=== PATIENT | female | born 1985 | race Caucasian/White ===

== ENCOUNTER 2017-06-03 18:20 | Inpatient (IN) | payer MEDICAID ==
[2017-06-03] MEDS ORDERED: Methylergonovine 0.2 MG/1 ML Amp IM PRN (20:18)
[2017-06-03] MEDS ORDERED: Misoprostol 200 MCG Tab PO PRN (20:18)
[2017-06-03] MEDS ORDERED: Sodium Chloride 0.9% 2.5 ML Syringe FLUSH PRN (20:18)
[2017-06-03] MEDS ORDERED: Water For Irrigation,Sterile 1,000 ML Container IRR PRN (20:18)
[2017-06-03] MEDS ORDERED: Carboprost Tromethamine 250 MCG/1 ML Amp IM PRN (20:18)
[2017-06-03] MEDS ORDERED: Lidocaine 1% 50 ML MDV INJECT PRN (20:18)
[2017-06-03] MEDS ORDERED: Nalbuphine 10 MG/1 ML Vial IVPUSH PRN (20:18)
[2017-06-03] MEDS ORDERED: Sodium Chloride 0.9% 10 ML Syringe FLUSH PRN (20:18)
[2017-06-03] MEDS ORDERED: Butorphanol 1 MG/ML SDV IVPUSH PRN (20:18)
[2017-06-03] MEDS ORDERED: Lactated Ringers 1,000 ML IV SCH (20:30)
[2017-06-03] MEDS ORDERED: Oxytocin/Lactated Ringers 30 UNIT/500 ML BAG IV SCH ×2 (20:30→23:30)
[2017-06-03 21:04] LABS: CHLORIDE,CL 107 mmol/L (98-110); SODIUM,NA 136 mmol/L (136-146)
[2017-06-03] MEDS ORDERED: Terbutaline 1 MG/ML SDV SUBCUT PRN (23:21)
--- NOTE | 2017-06-04 04:15 | PCM.PREANE ---
Preanesthetic Assessment - Anesthesia/Transfusion/Family Hx Anesthesia History: Prior Anesthesia Without Reaction Transfusion History: No Prior Transfusion(s) - Review of Systems General: No Symptoms Pulmonary: No Symptoms Cardiovascular: No Symptoms Gastrointestinal: No Symptoms Neurological: No Symptoms Other: Reports: None - Physical Assessment Height: 5 ft 4 in Weight: 87.997 kg ASA Class: 2 Mental Status: Alert & Oriented x3 Airway Class: Mallampati = 2 Dentition: Reports: Normal Dentition Thyro-Mental Finger Breadths: 3 Mouth Opening Finger Breadths: 3 ROM/Head Extension: Full Lungs: Clear to Auscultation, Normal Respiratory Effort Cardiovascular: Regular Rate, Regular Rhythm - Lab Values: Laboratory Last Values WBC 14.55 K/uL (4.0-11.0) H 06/03/17 20:33 RBC 4.64 M/uL (4.30-5.90) 06/03/17 20:33 Hgb 14.2 g/dL (12.0-16.0) 06/03/17 20:33 Hct 41.3 % (36.0-46.0) 06/03/17 20:33 MCV 89.0 fL (80.0-98.0) 06/03/17 20:33 MCH 30.6 pg (27.0-32.0) 06/03/17 20:33 MCHC 34.4 g/dL (31.0-37.0) 06/03/17 20:33 RDW Std Deviation 45.8 fl (28.0-62.0) 06/03/17 20:33 RDW Coeff of Barb 14 % (11.0-15.0) 06/03/17 20:33 Plt Count 237 K/uL (150-400) 06/03/17 20:33 MPV 11.00 fL (7.40-12.00) 06/03/17 20:33 Nucleated RBC % 0.0 /100WBC 06/03/17 20:33 Nucleated RBCs # 0 K/uL 06/03/17 20:33 Sodium 136 mmol/L (136-146) 06/03/17 20:33 Potassium 4.4 mmol/L (3.5-5.1) 06/03/17 20:33 Chloride 107 mmol/L (98-110) 06/03/17 20:33 Carbon Dioxide 18 mmol/L (21-31) L 06/03/17 20:33 BUN 11 mg/dL (6.0-23.0) 06/03/17 20:33 Creatinine 0.7 mg/dL (0.6-1.5) 06/03/17 20:33 Est Cr Clr Drug Dosing 102.40 mL/min 06/03/17 20:33 Estimated GFR (MDRD) > 60.0 ml/min 06/03/17 20:33 Glucose 72 mg/dL (60-110) 06/03/17 20:33 Calcium 9.2 mg/dL (8.8-10.8) 06/03/17 20:33 Total Bilirubin 0.3 mg/dL (0.1-1.5) 06/03/17 20:33 AST 19 IU/L (5-40) 06/03/17 20:33 ALT 21 IU/L (8-54) 06/03/17 20:33 Alkaline Phosphatase 202 (40-150) H 06/03/17 20:33 Total Protein 6.2 g/dL (6.0-8.0) 06/03/17 20:33 Albumin 3.4 g/dL (3.5-5.0) L 06/03/17 20:33 Globulin 2.8 g/dL (2.0-3.5) 06/03/17 20:33 Albumin/Globulin Ratio 1.2 (1.3-2.8) L 06/03/17 20:33 Urine Color YELLOW 06/03/17 19:45 Urine Appearance CLOUDY 06/03/17 19:45 Urine pH 7.0 (5.0-8.0) 06/03/17 19:45 Ur Specific [place] 1.020 (1.001-1.035) 06/03/17 19:45 Urine Protein NEGATIVE mg/dL (NEGATIVE) 06/03/17 19:45 Urine Glucose (UA) NEGATIVE mg/dL (NEGATIVE) 06/03/17 19:45 Urine Ketones 15 mg/dL (NEGATIVE) H 06/03/17 19:45 Urine Occult Blood MODERATE (NEGATIVE) 06/03/17 19:45 Urine Nitrite NEGATIVE (NEGATIVE) 06/03/17 19:45 Urine Bilirubin NEGATIVE (NEGATIVE) 06/03/17 19:45 Urine Urobilinogen 0.2 EU/dL (<2.0) 06/03/17 19:45 Ur Leukocyte Esterase TRACE (NEGATIVE) 06/03/17 19:45 Urine RBC 10-12 (0-2/HPF) 06/03/17 19:45 Urine WBC 3-5 (0-5/HPF) 06/03/17 19:45 Ur Epithelial Cells MANY (NONE-FEW) 06/03/17 19:45 Urine Bacteria 1+ (NEGATIVE) H 06/03/17 19:45 Membrane Rupture POSITIVE 06/03/17 18:35 Blood Type A POSITIVE 06/03/17 20:33 Antibody Screen NEGATIVE 06/03/17 20:33 - Allergies Allergies/Adverse Reactions: Allergies Allergy/AdvReac Type Severity Reaction Status Date / Time sulfamethoxazole Allergy Dizziness Verified 04/26/17 09:40 [From Bactrim] trimethoprim [From Bactrim] Allergy Dizziness Verified 04/26/17 09:40 - Acknowledgements Anesthesia Type Planned: Epidural Pt an Appropriate Candidate for the Planned Anesthesia: Yes Alternatives and Risks of Anesthesia Discussed w Pt/Guardian: Yes Pt/Guardian Understands and Agrees with Anesthesia Plan: Yes PreAnesthesia Questionnaire HEENT History: Reports: None Cardiovascular History: Reports: Hypertension (Gestational) Respiratory History: Reports: None Gastrointestinal History: Reports: GERD Genitourinary History: Reports: None CUFF SETTER History: Reports: : 3 Para: 0 LMP (Approximate): Other OB/BYN History: Preclampsia Musculoskeletal History: Reports: None Neurological History: Reports: None Psychiatric History: Reports: None Endocrine/Metabolic History: Reports: Obesity/BMI 30+ Hematologic History: Reports: None Immunologic History: Reports: None Oncologic (Cancer) History: Reports: None Dermatologic History: Reports: None - Past Surgical History HEENT Surgical History: Reports: Tonsillectomy Dermatological Surgical History: Reports: Other (See Below) (Breast augmentation ) - CURRENT (IN HOUSE) MEDS Current Meds: Current Medications Butorphanol Tartrate (Stadol) 1 mg IVPUSH Q1H PRN PRN Reason: Pain Carboprost Tromethamine (Hemabate Ds) 250 mcg IM ASDIRECTED PRN PRN Reason: Post Hemorrhage Lactated Ringer's (Ringers, Lactated) 1,000 mls @ 150 mls/hr IV ASDIRECTED NADINE Last Admin: 06/03/17 20:32 Dose: 150 mls/hr Oxytocin/Lactated Ringer's (Pitocin In Lr 30 Units/500 Ml) 30 unit in 500 mls @ 2 mls/hr IV TITRATE NADINE; 2 MUNITS/MIN PRN Reason: Protocol Last Titration: 06/04/17 03:21 Dose: 10 munits/min, 10 mls/hr Lidocaine HCl (Xylocaine 1%) 50 ml INJECT .ONCE PRN PRN Reason: Laceration repair Methylergonovine Maleate (Methergine) 0.2 mg IM ASDIRECTED PRN PRN Reason: Post Hemorrhage Misoprostol (Cytotec) 200 mcg PO .ONCE PRN PRN Reason: Post Hemorrhage Sodium Chloride (Saline Flush) 10 ml FLUSH ASDIRECTED PRN PRN Reason: Keep Vein Open Sodium Chloride (Saline Flush) 2.5 ml FLUSH ASDIRECTED PRN PRN Reason: Keep Vein Open Sterile Water (Sterile Water For Irrigation) 1,000 ml IRR ASDIRECTED PRN PRN Reason: delivery Terbutaline Sulfate (Brethine) 0.25 mg SUBCUT ASDIRECTED PRN PRN Reason: Tacysystole Discontinued Medications Oxytocin/Lactated Ringer's (Pitocin In Lr 30 Units/500 Ml) 30 unit in 500 mls @ 250 mls/hr IV TITRATE NADINE PRN Reason: 250 MUNITS/MIN Stop: 06/03/17 22:29 Nalbuphine HCl (Nubain) 10 mg IVPUSH Q1H PRN PRN Reason: Pain (severe 7-10) Stop: 06/03/17 22:19
[2017-06-04] MEDS ORDERED: fentaNYL 100 MCG/2 ML SDV ONE (04:17)
[2017-06-04] MEDS ORDERED: Ropivacaine HCl/PF 100 ML ONE (04:17)
[2017-06-04] MEDS ORDERED: ePHEDrine 50 MG/ML SDV ONE (06:01)
--- NOTE | 2017-06-04 06:38 | PCM.SN ---
- Free Text/Narrative Note: Called by nursing for PIV access. Pt currently has a 20g PIV that is not working. 20g PIV started to Lt hand, draws and flushes with ease. Secured with tape and tegaderm.
[2017-06-04] MEDS ORDERED: Witch Hazel Medicated Pads 40/Jar TOP PRN (10:16)
[2017-06-04] MEDS ORDERED: Benzocaine/Menthol 20%-0.5% Spray 78 GM Cannister TOP PRN (10:16)
[2017-06-04] MEDS ORDERED: Docusate Sodium 100 MG Cap PO PRN (10:16)
[2017-06-04] MEDS ORDERED: Bisacodyl 10 MG Supp RECTAL PRN (10:16)
[2017-06-04] MEDS ORDERED: Acetaminophen 500 MG Tab PO PRN (10:16)
[2017-06-04] MEDS ORDERED: Ibuprofen 400 MG Tab PO PRN (10:16)
[2017-06-04] MEDS ORDERED: oxyCODONE 5 MG Tab PO PRN (10:16)
[2017-06-04] MEDS ORDERED: Lanolin 100% Cream 7 GM Tube TOP PRN (10:16)
[2017-06-04] MEDS ORDERED: Ibuprofen 800 MG Tab PO PRN (10:16)
--- NOTE | 2017-06-04 11:15 | OR ---
SURGEON: Jessica Douglas M.D. DATE OF PROCEDURE: 06/04/2017 PREOPERATIVE DIAGNOSES: 1. Thirty-nine week intrauterine . 2. Spontaneous rupture of membranes. POSTOPERATIVE DIAGNOSES: 1. Thirty nine-week intrauterine . 2. Spontaneous rupture of membranes. PROCEDURE: Spontaneous vaginal delivery, first-degree perineal laceration repaired. ESTIMATED BLOOD LOSS: 300 mL. ANESTHESIA: Epidural. COMPLICATIONS: None. FINDINGS: Term male, score 9 at 1 minute, 9 at 5 minutes. Weight of a 3480 g. Spontaneous delivery, intact placenta, three-vessel cord, true knot in the cord. It was noted nuchal cord x1 was reduced manually. DISPOSITION: Mom in LDRP, infant nursery. PROCEDURE DETAIL: Larry is a 31-year-old, G3, P0-0-2-0, at 38 and 6 weeks' gestational age when she presented on the evening of 06/03/2017 with leakage of fluid since approximately 3:00 p.m. AmniSure was positive. Fluid was clear. She was found to be 2 cm, 70% effaced, -3 station. Therefore, she was admitted, routine labs were drawn, and IV hydration was initiated. She was monitored for the next 2 hours without any interval change in the cervix and no regular contractions formulating. Therefore, was initiated on Pitocin augmentation. She responded very nicely to this and progressed fairly quickly through the respiratory care assistant hours, and shortly before 5:00 a.m., she was found to be 7 cm. She was having difficulty with pain; therefore, underwent regional anesthesia in the form of epidural. heart tones have been in the 140s. She underwent epidural satisfactorily, became more comfortable, however, directly thereafter began having recurrent deceleration. Therefore, IV hydration was initiated. The patient was repositioned, oxygen was placed, and Pitocin was discontinued. With these efforts, the heart tones stabilized again to the 140s with variability, category 1. Shortly after 6:00 a.m., the patient was found to be complete, 100% effaced, +1 station. The patient was comfortable and able to rest. Therefore, we allowed her to continue to labor. She was still having contractions every 3 to 4 minutes. At approximately 9:00 a.m., she was found to be +2 station and started pushing efforts. heart tones were in the 140s. Contractions were moderate to palpation. Therefore, Pitocin was resumed two sohail units which helped intensified in patient with pushing efforts, was easily able to deliver +4 station, and I was called for delivery. The patient was placed in modified dorsal lithotomy position. She was prepped and draped in the usual aseptic manner. With pushing efforts, was able to deliver the 's head atraumatically, spontaneously, followed by anterior shoulder, posterior shoulder, main body, delivered nuchal cord. There was a nuchal cord x1 which was reduced manually. The infant's oropharynx and nares were bulb suctioned. Cord clamped x2 and cut. Infant was handed off to his mother with attending nursing staff at her side. Cord arterial, cord venous, cord blood samples obtained. Light pressure was applied while the placenta was delivered spontaneously intact. Vigorous fundal uterine massage was then applied with 30 units of Pitocin was delivered in 500 mL of IV fluid. There was noted to be a true knot in the in the umbilical cord. The uterus remained firm. Upon inspection of cervix, vaginal sidewalls, and perineum, there was a small first-degree left hymenal laceration noted, this repaired with a single figure- of-eight suture using 3-0 Vicryl. Hemostasis thereafter evident. Uterus remained firm. Sponge counts correct. Hemostasis evident. Needle count was correct. The patient will remain in LDRP and the infant in nursery. ROHAN PATEL /[id number] BENJAMIN
[2017-06-04] MEDS: Acetaminophen 500 MG Tab PO PRN ×2 (17:11→23:36)
--- NOTE | 2017-06-05 07:39 | PCM.PNPP ---
- General Info Date of Service: 06/05/17 Functional Status: Reports: Pain Controlled, Tolerating Diet, Ambulating, Urinating - Review of Systems General: Denies: Fever, Weakness Pulmonary: Denies: Shortness of Breath Cardiovascular: Denies: Chest Pain, Palpitations, Lightheadedness Gastrointestinal: Denies: Abdominal Pain, Nausea, Vomiting Genitourinary: Denies: Flank Pain Neurological: Reports: No Symptoms Psychiatric: Reports: No Symptoms - General Info Date of Service: 06/05/17 - Patient Data Vital Signs - Most Recent: Last Vital Signs Temp 36.2 C 06/05/17 04:00 Pulse 70 06/05/17 04:00 Resp 17 06/05/17 04:00 BP 134/67 06/05/17 04:00 Pulse Ox 98 06/05/17 04:00 Weight - Most Recent: 87.997 kg Lab Results - Last 24 Hours: Laboratory Results - last 24 hr 06/05/17 Range/Units 06:29 Hgb 12.3 (12.0-16.0) g/dL Hct 36.5 (36.0-46.0) % Med Orders - Current: Current Medications Acetaminophen (Tylenol Extra Strength) 500 mg PO Q4H PRN PRN Reason: Pain Acetaminophen (Tylenol Extra Strength) 1,000 mg PO Q4H PRN PRN Reason: Pain Last Admin: 06/04/17 23:36 Dose: 1,000 mg Benzocaine/Menthol (Dermoplast Pain Relief 20%-0.5% [place]) 78 gm TOP ASDIRECTED PRN PRN Reason: Perineal Comfort Measure Bisacodyl (Dulcolax) 10 mg RECTAL .ONCE PRN PRN Reason: Constipation Carboprost Tromethamine (Hemabate Ds) 250 mcg IM ASDIRECTED PRN PRN Reason: Post Hemorrhage Docusate Sodium (Colace) 100 mg PO BID PRN PRN Reason: Constipation Emollient Ointment (Lansinoh Hpa) 0 gm TOP ASDIRECTED PRN PRN Reason: Sore Nipples Lactated Ringer's (Ringers, Lactated) 1,000 mls @ 150 mls/hr IV ASDIRECTED NADINE Last Admin: 06/03/17 20:32 Dose: 150 mls/hr Oxytocin/Lactated Ringer's (Pitocin In Lr 30 Units/500 Ml) 30 unit in 500 mls @ 2 mls/hr IV TITRATE NADINE; 2 MUNITS/MIN PRN Reason: Protocol Last Titration: 06/04/17 10:05 Dose: 500 munits/min, 500 mls/hr Ibuprofen (Motrin) 400 mg PO Q4H PRN PRN Reason: Pain Ibuprofen (Motrin) 800 mg PO Q6H PRN PRN Reason: Pain Last Admin: 06/04/17 13:12 Dose: 800 mg Lidocaine HCl (Xylocaine 1%) 50 ml INJECT .ONCE PRN PRN Reason: Laceration repair Methylergonovine Maleate (Methergine) 0.2 mg IM ASDIRECTED PRN PRN Reason: Post Hemorrhage Oxycodone HCl (Oxycodone) 5 mg PO Q2H PRN PRN Reason: Pain Sodium Chloride (Saline Flush) 10 ml FLUSH ASDIRECTED PRN PRN Reason: Keep Vein Open Witch Vandana (Tucks) 1 pad TOP ASDIRECTED PRN PRN Reason: comfort care Discontinued Medications Butorphanol Tartrate (Stadol) 1 mg IVPUSH Q1H PRN PRN Reason: Pain Ephedrine Sulfate (Ephedrine Sulfate) Confirm Administered Dose 50 mg .ROUTE .STK-MED ONE Stop: 06/04/17 06:02 Last Admin: 06/04/17 15:39 Dose: Not Given Fentanyl (Sublimaze) Confirm Administered Dose 100 mcg .ROUTE .STK-MED ONE Stop: 06/04/17 04:18 Last Admin: 06/04/17 15:37 Dose: Not Given Oxytocin/Lactated Ringer's (Pitocin In Lr 30 Units/500 Ml) 30 unit in 500 mls @ 250 mls/hr IV TITRATE NADINE PRN Reason: 250 MUNITS/MIN Stop: 06/03/17 22:29 Last Admin: 06/04/17 15:39 Dose: Not Given Ropivacaine (Naropin 0.2%) Confirm Administered Dose 100 mls @ as directed .ROUTE .STK-MED ONE Stop: 06/04/17 04:18 Last Admin: 06/04/17 15:37 Dose: Not Given Misoprostol (Cytotec) 200 mcg PO .ONCE PRN PRN Reason: Post Hemorrhage Nalbuphine HCl (Nubain) 10 mg IVPUSH Q1H PRN PRN Reason: Pain (severe 7-10) Stop: 06/03/17 22:19 Sodium Chloride (Saline Flush) 2.5 ml FLUSH ASDIRECTED PRN PRN Reason: Keep Vein Open Sterile Water (Sterile Water For Irrigation) 1,000 ml IRR ASDIRECTED PRN PRN Reason: delivery Terbutaline Sulfate (Brethine) 0.25 mg SUBCUT ASDIRECTED PRN PRN Reason: Tacysystole - Infant Interaction Infant Disposition, : in Room with Family Interaction: Holding Infant Feeding: Continues to Breastfeed, Encouraged to Breastfeed Support Person: Significant Other - Recovery Exam Fundal Tone: Firm Fundal Level: 1 Fingerbreadths Below Umbilicus Fundal Placement: Midline Lochia Amount: Scant Lochia Color: Rubra/Red Perineum Description: Intact, Minimal Bruising/Swelling Episiotomy/Laceration: Approximated Bladder Status: Voiding Urinary Elimination: Voided - Exam General: Alert, Oriented Lungs: Normal Respiratory Effort Cardiovascular: Regular Rate, Regular Rhythm GI/Abdominal Exam: Soft, Non-Tender Extremities: Non-Tender (1+), Pedal Edema Skin: Warm, Dry, Intact Psy/Mental Status: Alert - Problem List & Annotations (1) Vaginal delivery SNOMED Code(s): 588917046 Code(s): O80 - ENCOUNTER FOR FULL-TERM UNCOMPLICATED DELIVERY Status: Acute Current Visit: Yes - Problem List Review Problem List Initiated/Reviewed/Updated: Yes - My Orders Last 24 Hours: My Active Orders 06/04/17 10:16 May Shower [RC] ASDIRECTED Up ad Ora [RC] ASDIRECTED Vital Signs [RC] PER UNIT ROUTINE Acetaminophen [Tylenol Extra Strength] 1,000 mg PO Q4H PRN Acetaminophen [Tylenol Extra Strength] 500 mg PO Q4H PRN Benzocaine/Menthol [Dermoplast Pain Relief 20%-0.5% [place]] 78 gm TOP ASDIRECTED PRN Bisacodyl [Dulcolax] 10 mg RECTAL .ONCE PRN Docusate Sodium [Colace] 100 mg PO BID PRN Ibuprofen [Motrin] 400 mg PO Q4H PRN Ibuprofen [Motrin] 800 mg PO Q6H PRN Lanolin [Lansinoh HPA] See Dose Instructions TOP ASDIRECTED PRN Witch Vandana [Tucks] 1 pad TOP ASDIRECTED PRN oxyCODONE 5 mg PO Q2H PRN Assess Lochia [WOMSER] Per Unit Routine Assess Uterine Involution [WOMSER] Per Unit Routine Ice Therapy [OM.PC] Per Unit Routine Perineal Care [OM.PC] Per Unit Routine Peripheral IV Discontinue [OM.PC] Routine Sitz Bath [OM.PC] Per Unit Routine 06/04/17 Lunch Regular Diet [DIET] - Assessment Assessment:: PPD 1 status post - Plan Plan:: Patient would like to go home later today. Discharge instructions reviewed. infection and bleeding warnings reviewed. Follow up at [facility] 6 weeks
[2017-06-05 08:18] VITALS: BP 131/72
--- NOTE | 2017-06-05 10:35 | PCM48HPAN ---
Post Anesthesia Note - EVALUATION WITHIN 48HRS OF ANESTHETIC Vital Signs in Normal Range: Yes Patient Participated in Evaluation: Yes Respiratory Function Stable: Yes Airway Patent: Yes Cardiovascular Function Stable: Yes Hydration Status Stable: Yes Pain Control Satisfactory: Yes Nausea and Vomiting Control Satisfactory: Yes Mental Status Recovered: Yes
[2017-06-05] MEDS: Acetaminophen 500 MG Tab PO PRN (12:59)
== END 2017-06-05 13:55 | disposition home or self-care (01) | DRG 775 ==
LOC: MW.OBCHECK 18:20 → MW.OB 18:28 → MW.OBCHECK 20:17 → MW.OB 20:18 → OBSVTOIN 06-04 10:02 → MW.OB 06-04 13:31
PROVIDERS: ADMIT Obstetrics & Gynecology; ATTEND Obstetrics & Gynecology
PROC: 10E0XZZ Delivery of Products of Conception, External Approach (ICD-10-PCS; principal; 2017-06-04)
PROC: 0HQ9XZZ Repair Perineum Skin, External Approach (ICD-10-PCS; 2017-06-04)
DX: O42.02 Full-term premature rupture of membranes, onset of labor within 24 hours of rupture (principal); O70.0 First degree perineal laceration during delivery; O69.1XX0 Labor and delivery complicated by cord around neck, with compression, not applicable or unspecified; Z3A.39 39 weeks gestation of pregnancy; Z37.0 Single live birth
CPT/HCPCS: 36415; 59025; 80053; 81001; 84112; 85014; 85018; 85027; 86850; 86900; 86901; A9270-GY; J7120